=== PATIENT | female | born 1995 | race Caucasian/White ===

== ENCOUNTER 2025-02-20 19:54 | Emergency (ER) | payer MEDICAID ==
[~2025-02-20] VITALS: Ht 162.6 cm; Wt 54.5 kg
[~2025-02-20 19:54] MED LIST: CIPR2.5D21 OP
[2025-02-20 20:07] VITALS: BP 11/73; PULSE 97; RESP 20; TEMP 97; O2SAT 99
--- NOTE | 2025-02-20 23:45 | Physician Documentation ---
History of Present Illness ~ Chief Complaint: Foreign body Stated Complaint: THROAT PAIN HPI Patient is a 29-year-old female that reports to the emergency department with complaints of hamburger stuck in her throat times several hours. Patient reports this has happened to her multiple times. Patient reports that she was able to swallow the hamburger feels like it is stuck about chcf down. Reports it was a very small piece of hamburger and feels like he is actually broken up. Reports no difficulty breathing. Patient reports she has no history of adhesions or strictures in her family. Her symptoms reported at this time Medication Reconciliation Allergies: Coded Allergies: Sulfa (Sulfonamide Antibiotics) (Verified Allergy, 03/31/13) Scheduled Ciprofloxacin Hcl Ophth* (Ciloxan 0.35 Ophth Drops*), 2 DROP OP [id number] Past Medical History Past Medical History: No Pertinent History Past Surgical History: tonsillectomy Alcohol Use: None Lives with: Family Review of Systems ROS As stated above in the HPI, otherwise all systems are reviewed and negative. Physical Exam Vital Signs: Temperature: 97.0, Heart Rate: 97, Respiratory Rate: 20, BP: 11/73, Pulse Oximetry: 99, Weight: 54.540 Oxygen Flow Rate: 0 Physical Exam VITALS: Reviewed and as above. GENERAL: Alert, no apparent distress. HEENT: Normocephalic, atraumatic, PERRL, EOMI, dry mucosa, no erythema RESPIRATORY: Lungs clear, normal breath sounds, no respiratory distress. CHEST: No accessory muscle use, no retractions CV: Regular rate, rhythm, no edema, no murmur, No: JVD GI: Soft, non-tender, bowels sounds present, no rebound, guarding, or rigidity BACK: No CVA tenderness, or swelling MUSCULOSKELETAL No deformities, no edema SKIN: Warm and dry, no rash NEURO: Oriented x4, No motor or sensory deficit PSYCH: Normal mood and affect, no agitation Progress Results/Orders Results/Orders Orders - IFEANYI DUNLAP [facility] Ct Neck Soft Tissues (02/20/25 ) Vital Signs 02/20/25 20:07 Temp 97.0 Pulse 97 Resp 20 B/P (MAP) 11/73 Pulse Ox 99 O2 Flow Rate 0 Medical Decision Making Findings Patient left prior to exam results. Departure Disposition: 07 LEFT AWOL/ELOPED Impression: Primary Impression: Foreign body Condition: Stable Discharge Instructions: Foreign Body, Esophageal, Foreign Body, Swallowed, Adult Additional Instructions: Patient left prior to receiving exam results. Referrals: NO PRIMARY CARE PROVIDER (PCP) Education Educated: Patient Educated regarding: diagnosis, treatment, need for follow up Signature Scribe Signature: A Attestation: Scribed for Emergency,Department by RODERICK Dangelo . 02/20/25 23:45 IFEANYI DUNLAP Feb 20, 2025 23:45
== END 2025-02-20 23:44 | disposition left against medical advice (07) ==
LOC: ER 19:55
DX: T18.128A Food in esophagus causing other injury, initial encounter (principal); Z88.2 Allergy status to sulfonamides; Z90.89 Acquired absence of other organs; W44.F3XA Food entering into or through a natural orifice, initial encounter; Y93.89 Activity, other specified; Y92.89 Other specified places as the place of occurrence of the external cause; Y99.8 Other external cause status
CPT/HCPCS: 99281